=== PATIENT | female | born 1960 | race African-American/Black ===

== ENCOUNTER 2016-11-08 16:21 | Inpatient (IN) | payer MEDICARE, MEDICAID ==
[~2016-11-08] VITALS: Ht 165.1 cm; Wt 103.9 kg
[~2016-11-08 16:21] MED LIST: ALBU8I INH; GABA600T PO; GLUCTES27 XX; LISI10TA PO; LYRI50CA2 PO; PROT40TA PO; ZITHTAB PO
[2016-11-08 16:23] VITALS: BP 114/73; PULSE 118; RESP 28; TEMP 98.4; O2SAT 97
[2016-11-08 16:26] VITALS: PULSE 110
--- NOTE | 2016-11-08 16:44 | PD ---
HPI Chief Complaint: Injury Time Seen by Provider: 16:40 Travel History International Travel<30 days: No Contact w/Intl Traveler<30days: No Traveled to known affect area: No History of Present Illness HPI 56-year-old female presents to the emergency Department with complaint of right knee pain after tripping over a curb and falling on cement on her right knee. Denies hitting her head or loss of consciousness. Denies neck pain or back pain. Says it feels like her kneecap is cracked in two. Patient is tearful and reports excessive pain. Denies paresthesias, loss of sensation to the affected extremity. Reports decreased range of motion at the knee. Denies anticoagulants. Has no other medical complaints. No known allergies. History of lupus. No other modifying factors or associated signs and symptoms. PFSH Past Medical History Diabetes: Yes Menopausal: Yes Tubal Ligation: Yes Past Surgical History Section: Yes (X2) Social History Alcohol Use: No Tobacco Use: Yes (2-3 CIG PER DAY) Substance Use: No Allergies-Medications (Allergen,Severity, Reaction): Coded Allergies: No Known Allergies (Verified , 11/08/16) Reported Meds & Prescriptions Reported Meds & Active Scripts Active Lisinopril/Hctz 10 mg/12.5 mg 10 mg/12.5 mg Tab 1 Tab PO DAILY Contour Next Blood Glucose Test Strip #25 (Blood Glucose Test Strips) Strp 1 Strip XX DIRECTED Zithromax Z-Nick (Azithromycin) 1 Tab Tab 500 Mg PO DAILY Lyrica (Pregabalin) 50 Mg Cap 50 Mg PO TID Protonix (Pantoprazole Sodium) 40 Mg Tab 40 Mg PO DAILY Gabapentin 600 Mg Tab 600 Mg PO TID Ventolin Hfa (Albuterol Sulfate) 8 Gm Aero 1 Puff INH Q4 * SHAKE WELL BEFORE USE * Lyrica (Pregabalin) 50 Mg Cap 50 Mg PO TID Review of Systems Except as stated in HPI: all other systems reviewed are Neg Physical Exam Narrative GENERAL: Well-nourished, well-developed female patient, in no acute distress; afebrile, nontoxic-appearing; tearful and appears painful SKIN: Warm and dry. HEAD: Atraumatic. Normocephalic. EYES: Pupils equal and round. No scleral icterus. No injection or drainage. ENT: Mucosa pink and moist. Airway patent. NECK: Trachea midline. CARDIOVASCULAR: Regular rate. RESPIRATORY: No accessory muscle use. GASTROINTESTINAL: Rounded. MUSCULOSKELETAL: Right knee nonedematous, nonerythematous, and without ecchymosis; unable to assess range of motion; tenderness to the patellar aspect and the patella with deformity on palpation; patella appears deformed. Right Lower extremity is supple and non-tense with 2+ pedal pulse and sensory intact and without erythema or edema. Ambulatory in room with a limp to the [-] lower extremity. NEUROLOGICAL: Awake and alert. Oriented 3. No obvious cranial nerve deficits. Motor grossly within normal limits. Normal speech. PSYCHIATRIC: Appropriate mood and affect; insight and judgment normal. Data Data Last Documented VS Vital Signs Date Time Temp Pulse Resp B/P Pulse Ox O2 Delivery O2 Flow Rate FiO2 11/08/16 16:58 17 11/08/16 16:47 99 Room Air 11/08/16 16:26 110 11/08/16 16:23 98.4 114/73 Orders Knee, Complete (4vws) (11/08/16 16:32) Morphine Inj (Morphine Inj) (11/08/16 16:45) Canvas Knee Splint (Cks) (11/08/16 ) Ice Cuff (11/08/16 ) Npo After Midnight W/ Po Meds (11/08/16 Dinner) Diet Regular Basic (11/08/16 Dinner) Basic Metabolic Panel (Bmp) (11/08/16 18:12) Complete Blood Count With Diff (11/08/16 18:12) Prothrombin Time / Inr (Pt) (11/08/16 18:12) Act Partial Throm Time (Ptt) (11/08/16 18:12) Iv Access Insert/Monitor (11/08/16 18:12) Sodium Chloride 0.9% Flush (Ns Flush) (11/08/16 18:15) Electrocardiogram (11/08/16 18:12) Chest, Single Ap (11/08/16 18:12) Consult Orthopedic (11/08/16 18:17) (Hub Use Only)Inp Phy Cons/Ref (11/08/16 ) MDM Medical Decision Making Medical Screen Exam Complete: Yes Emergency Medical Condition: Yes Medical Record Reviewed: Yes Differential Diagnosis Patellar fracture, knee contusion, knee injury Narrative Course 56-year-old female with right knee injury after mechanical trip and fall today. The patella of the right knee appears and feels deformed. Suspecting patellar fracture. Morphine ordered by JOSE. Right knee x-ray ordered. 1804: Right knee x-ray concludes comminuted, displaced patellar fracture. Call to orthopedics place. 1809: I spoke with DIA Greco and the patient will be admitted for surgery in the morning. Call out to medical for admission placed. Preop orders entered. 1839: I discussed the patient with Dr. Hicks and the patient will be admitted to his service. Physician Communication Physician Communication IDA Greco of Dr. Nguyen Hicks Diagnosis Primary Impression: Patellar fracture Qualified Code: S82.041A - Closed displaced comminuted fracture of right patella, initial encounter Admitting Information Admitting Physician Requests: Admit Angela Santana Nov 08, 2016 16:44
[2016-11-08] MEDS ORDERED: MORPHINE SULFATE 4 MG/ML INJ IM ONE (16:45)
--- NOTE | 2016-11-08 18:01 | RADRPT ---
EXAM DATE/TIME: 11/08/2016 16:43 [facility] COMPARISON: No previous studies available for comparison. INDICATIONS : Right knee pain MEDICAL HISTORY : None. SURGICAL HISTORY : None. ENCOUNTER: Initial ACUITY: 1 day PAIN SCORE: 9/10 LOCATION: Right knee FINDINGS: There is a comminuted mid patella fracture with 1.5 cm distraction anteriorly and 5 mm posterior disp lacement of proximal fragment. Small joint effusion. No other fractures are seen. CONCLUSION: 1. Comminuted, displaced patellar fracture. Wicho Chambers MD on November 08, 2016 at 17:58 Board Certified Radiologist. This report was verified electronically.
[2016-11-08] MEDS ORDERED: SODIUM CHLORIDE 0.9% FLUSH 10 ML FLUSH IV FLUSH PRN ×2 (18:15→19:00)
--- NOTE | 2016-11-08 18:32 | RADRPT ---
EXAM DATE/TIME: 11/08/2016 18:11 [facility] COMPARISON: CHEST SINGLE AP, October 26, 2013, 16:47. INDICATIONS : Evaluate for pneumonia, pneumothorax, or any communicable disease. Pre-op right knee. MEDICAL HISTORY : None. SURGICAL HISTORY : None. ENCOUNTER: Initial ACUITY: 1 day PAIN SCORE: 0/10 LOCATION: Bilateral chest FINDINGS: A single view of the chest demonstrates the lungs to be symmetrically aerated without evidence of mas s, infiltrate or effusion. The cardiomediastinal contours are unremarkable. Osseous structures are intact. CONCLUSION: 1. No acute findings. No focal lung consolidation or effusion. Wicho Chambers MD on November 08, 2016 at 18:28 Board Certified Radiologist. This report was verified electronically.
[2016-11-08 18:42] VITALS: BP 120/77; PULSE 98; RESP 17; TEMP 97.8; O2SAT 99
[2016-11-08 18:49] LABS: AUTOMATED NEUTROPHIL # 8.9 TH/MM3 (1.8-7.7); BASOPHIL % 0.4 % (0.0-2.0); EOSINOPHIL # 0.1 TH/MM3 (0-0.4); EOSINOPHIL % 0.6 % (0.0-4.0); HEMATOCRIT 41.9 % (35.0-46.0); HEMO FLAGS DIFF FINAL; LYMPHOCYTE # 1.9 TH/MM3 (1.0-4.8); MEAN CELL VOLUME 93.3 FL (80.0-100.0); MEAN CORPUSCULAR HEMOGLOBIN 30.8 PG (27.0-34.0); MONO % 6.9 % (0.0-8.0); NEUT % 76.1 % (16.0-70.0); PLATELET COUNT 245 TH/MM3 (150-450); RED CELL DISTRIBUTION WIDTH 14.3 % (11.6-17.2); WHITE BLOOD COUNT 11.7 TH/MM3 (4.0-11.0)
--- NOTE | 2016-11-08 18:56 | HHI.HP ---
HPI Service [facility] Hospitalists Primary Care Physician Claude Paniagua MD Admission Diagnosis right patellar fracture Diagnoses: Chief Complaint: Right knee pain Travel History International Travel<30 Days: No Contact w/Intl Traveler <30 Da: No Traveled to Known Affected Are: No History of Present Illness This is a 56-year-old female with past medical history significant for hypertension, lupus, diet-controlled diabetes, depression presented to [facility] after she fell after healing occur over her knees. She felt immediate /10 pain was nonradiating in the right knee and states was able to observe the right knee going inwards. The patient states that movement aggravated the pain and this was unrelieved after she was given IV morphine emergency department. The patient denies hitting her head or losing consciousness, denies dizziness, chest pain, short of breath, dysuria, abdominal pain, nausea, vomiting, diarrhea. She states that she was going to eat when she fell. Review of Systems As per history of present illness, other systems reviewed and negative. Past Family Social History Past Medical History Hypertension, lupus, depression, diet-controlled diabetes. Past Surgical History 2 Right hand incision and debridement. Esophageal dilatation for esophageal strictures. Allergies: Coded Allergies: No Known Allergies (Verified , 11/08/16) Active Ordered Medications Current Medications Medications (Trade) Dose Ordered Sig/Manuel Route Start Time Stop Time Status Last Admin (NS Flush) 2 ml UNSCH PRN IV FLUSH 11/08/16 18:15 Family History Patient has extensive family history for hypertension which is present in her siblings. Patient's mother from bone cancer. Patient father from brain aneurysm. Social History Patient smokes 4 cigarettes per day. Patient drinks wine every night. Denies using illicit drugs. Physical Exam Vital Signs Vital Signs Date Time Temp Pulse Resp B/P Pulse Ox O2 Delivery O2 Flow Rate FiO2 11/08/16 18:42 97.8 98 17 120/77 99 Room Air 11/08/16 16:58 17 11/08/16 16:47 17 99 Room Air 11/08/16 16:26 110 11/08/16 16:23 98.4 118 28 114/73 97 Room Air Physical Exam GENERAL: This is a well-nourished, well-developed patient, in no apparent distress. SKIN: No rashes, ecchymoses or lesions. Cool and dry. HEAD: Atraumatic. Normocephalic. No temporal or scalp tenderness. EYES: Pupils equal round and reactive. Extraocular motions intact. No scleral icterus. No injection or drainage. ENT: Nose without bleeding, purulent drainage or septal hematoma. Throat without erythema, tonsillar hypertrophy or exudate. Uvula midline. Airway patent. NECK: Trachea midline. No JVD or lymphadenopathy. Supple, nontender, no meningeal signs. CARDIOVASCULAR: Regular rate and rhythm without murmurs, gallops, or rubs. RESPIRATORY: Clear to auscultation. Breath sounds equal bilaterally. No wheezes , rales, or rhonchi. GASTROINTESTINAL: Abdomen soft, non-tender, nondistended. No hepato-splenomegaly , or palpable masses. No guarding. MUSCULOSKELETAL: Right knee is in immobilizer. Right knee swollen and tender to palpation. There is mild elevation of the left knee but no tenderness to palpation of patella. NEUROLOGICAL: Awake and alert. Cranial nerves II through XII intact. Motor and sensory grossly within normal limits. Five out of 5 muscle strength in all muscle groups. Normal speech. Laboratory Laboratory Tests Test 11/08/16 18:15 White Blood Count 11.7 Red Blood Count 4.50 Hemoglobin 13.9 Hematocrit 41.9 Mean Corpuscular Volume 93.3 Mean Corpuscular Hemoglobin 30.8 Mean Corpuscular Hemoglobin 33.0 Concent Red Cell Distribution Width 14.3 Platelet Count 245 Mean Platelet Volume 9.0 Neutrophils (%) (Auto) 76.1 Lymphocytes (%) (Auto) 16.0 Monocytes (%) (Auto) 6.9 Eosinophils (%) (Auto) 0.6 Basophils (%) (Auto) 0.4 Neutrophils # (Auto) 8.9 Lymphocytes # (Auto) 1.9 Monocytes # (Auto) 0.8 Eosinophils # (Auto) 0.1 Basophils # (Auto) 0.0 CBC Comment DIFF FINAL Differential Comment Result Diagram: 11/08/161814 Imaging Last Impressions Chest X-Ray 11/08/161811 Signed Impressions: Service Date/Time: Tuesday, November 08, 2016 18:11 - CONCLUSION: 1. No acute findings. No focal lung consolidation or effusion. Wicho Chambers MD Knee X-Ray 11/08/16 1632 Signed Impressions: Service Date/Time: Tuesday, November 08, 2016 16:43 - CONCLUSION: 1. Comminuted , displaced patellar fracture. Wicho Chambers MD Reviewed personally by me Assessment and Plan Problem List: (1) Patellar fracture ICD Code: S82.009A Status: Acute Plan: The patient to the medical/surgical floor With leg pain control with IV morphine Orthopedic surgery has been consulted by ED physician - patient will go for or in a.m. Keep nothing by mouth at midnight Chest x-ray viewed by me is clear without acute disease EKG reviewed by me shows sinus rhythm and diffuse T-wave inversion. I will consult cardiology to clear patient for surgical procedure given abnormal EKG. (2) Hypertension ICD Code: I10 Status: Chronic Plan: Continue home antihypertensive medications once medication reconciliation done. (3) Depression ICD Code: F32.9 Status: Acute Plan: C2 stable. Continue Lexapro. (4) Lupus ICD Code: M32.9 Status: Acute Plan: Seems to be stable. Continue Plaquenil. Assessment and Plan DVT prophylaxis: SCDs will not place on heparin subcutaneous since patient is going for an invasive procedure and the family history of brain aneurysm. Code Status Full code Discussed Condition With Patient's, ED physician, RN. Physician Certification 2 Midnight Certification Type: Admission for Inpatient Services Order for Inpatient Services The services are ordered in accordance with Medicare regulations or non- Medicare payer requirements, as applicable. In the case of services not specified as inpatient-only, they are appropriately provided as inpatient services in accordance with the 2-midnight benchmark. Estimated LOS (days): 3 days is the estimated time the patient will need to remain in the hospital, assuming treatment plan goals are met and no additional complications. Post-Hospital Plan: Not yet determined Problem Qualifiers (1) Patellar fracture: Qualified Code: S82.041A - Closed displaced comminuted fracture of right patella, initial encounter (2) Hypertension: Qualified Code: I10 - Essential hypertension (3) Depression: Qualified Code: F32.9 - Depression, unspecified depression type Nicola Hyman MD Nov 08, 2016 18:56
[2016-11-08] MEDS ORDERED: BISACODYL 10 MG SUPP RECTAL PRN (19:00)
[2016-11-08] MEDS ORDERED: ACETAMINOPHEN 325 MG TAB PO PRN (19:00)
[2016-11-08] MEDS ORDERED: ONDANSETRON HCL 4 MG/2 ML VIAL IVP PRN (19:00)
[2016-11-08] MEDS ORDERED: MAGNESIUM HYDROXIDE SUSP 30 ML CUP PO PRN (19:00)
[2016-11-08] MEDS ORDERED: LACTULOSE SYRUP 20 GM/30 ML CUP PO PRN (19:00)
[2016-11-08] MEDS ORDERED: SENNOSIDES 8.6 MG TAB PO PRN (19:00)
[2016-11-08 19:02] LABS: APTT (PATIENT) 26.1 SEC (24.3-30.1); INTERNATIONAL NORMALIZED RATIO 1.1 RATIO; PROTHROMBIN TIME - PATIENT 12.7 SEC (9.8-11.6)
[2016-11-08 19:11] LABS: BICARBONATE 24.1 MEQ/L (21.0-32.0); POTASSIUM 3.8 MEQ/L (3.5-5.1)
[2016-11-08] MEDS ORDERED: PLAQ200T PO (19:29)
[2016-11-08] MEDS ORDERED: ENAL5TAB PO (19:29)
[2016-11-08] MEDS ORDERED: HYDR-3535 PO (19:29)
[2016-11-08] MEDS ORDERED: BACL10TA PO (19:29)
[2016-11-08] MEDS ORDERED: VENTAER INH (19:29)
[2016-11-08] MEDS ORDERED: LISI-515 PO (19:29)
[2016-11-08] MEDS ORDERED: HYDR25TA5 PO (19:29)
[2016-11-08] MEDS ORDERED: LEXA10TA PO (19:29)
[2016-11-08] MEDS ORDERED: MORPHINE SULFATE 4 MG/ML INJ IV PUSH PRN (19:30)
[2016-11-08] MEDS ORDERED: cloNIDine HCL 0.1 MG TAB PO PRN (19:30)
[2016-11-08] MEDS ORDERED: TIZA4CAP3 PO (19:57)
[2016-11-08] MEDS ORDERED: AMLO5TAB2 PO (19:57)
[2016-11-08] MEDS: MORPHINE SULFATE 4 MG/ML INJ IV PUSH PRN ×2 (20:30→23:31)
[2016-11-08] MEDS: DOCUSATE SODIUM 50 MG/SENNA 8.6 MG TAB PO SCH (20:30)
[2016-11-08 20:45] VITALS: BP 136/93; PULSE 105; RESP 19; TEMP 96.7; O2SAT 94
[2016-11-08] MEDS ORDERED: HEPARIN SODIUM - SQ 10,000 UNITS/ML VIAL SQ SCH (21:00)
[2016-11-08] MEDS ORDERED: SODIUM CHLORIDE 0.9% FLUSH 10 ML FLUSH IV FLUSH SCH (21:00)
[2016-11-08 23:50] VITALS: BP 104/81; PULSE 98; RESP 18; TEMP 97.9; O2SAT 98
[2016-11-09] MEDS ORDERED: POVIDONE IODINE 5% (ANTISEPSIS KIT) 4 APPLICATIONS EACH NARE PRN (02:30)
[2016-11-09] MEDS ORDERED: CHLORHEXIDINE GLUCONATE 2 % 1 PACK (2 CLOTHS) TOPICAL PRN (02:30)
[2016-11-09] MEDS ORDERED: INSULIN HUMAN REGULAR 1,000 UNITS/10 ML VIAL SQ PRN (02:30)
[2016-11-09] MEDS ORDERED: LACTATED RINGER'S 1000 ML IV PRN (02:30)
[2016-11-09] MEDS ORDERED: SODIUM CHLORID 0.9% 500 ML IV PRN (02:30)
[2016-11-09] MEDS ORDERED: METOPROLOL TARTRATE 25 MG TAB PO PRN (02:30)
[2016-11-09] MEDS: MORPHINE SULFATE 4 MG/ML INJ IV PUSH PRN ×6 (03:31→23:05)
[2016-11-09 04:13] VITALS: BP 107/86; PULSE 94; RESP 18; TEMP 98.2; O2SAT 98
[2016-11-09 06:59] LABS: AUTOMATED NEUTROPHIL # 6.5 TH/MM3 (1.8-7.7); BASOPHIL % 0.4 % (0.0-2.0); EOSINOPHIL # 0.1 TH/MM3 (0-0.4); HEMATOCRIT 37.2 % (35.0-46.0); HEMO FLAGS DIFF FINAL; LYMPH % 30.3 % (9.0-44.0); LYMPHOCYTE # 3.3 TH/MM3 (1.0-4.8); MEAN CELL VOLUME 92.9 FL (80.0-100.0); MEAN CORPUSCULAR HEMOGLOBIN 31.8 PG (27.0-34.0); MEAN CORPUSCULAR HGB CONC 34.2 % (32.0-36.0); MONO % 8.8 % (0.0-8.0); NEUT % 59.5 % (16.0-70.0); PLATELET COUNT 246 TH/MM3 (150-450); RED BLOOD COUNT 4.01 MIL/MM3 (4.00-5.30); RED CELL DISTRIBUTION WIDTH 14.3 % (11.6-17.2)
--- NOTE | 2016-11-09 07:20 | PD.ORT.PN ---
Subjective Subjective Remarks Fall at restaurant. Right knee pain with inability to straight leg Objective Vitals Vital Signs Date Time Temp Pulse Resp B/P Pulse Ox O2 Delivery O2 Flow Rate FiO2 11/09/16 04:13 98.2 94 18 107/86 98 11/08/16 23:50 97.9 98 18 104/81 98 11/08/16 20:45 96.7 105 19 136/93 94 11/08/16 19:34 Room Air 11/08/16 18:42 97.8 98 17 120/77 99 Room Air 11/08/16 16:58 17 11/08/16 16:47 17 99 Room Air 11/08/16 16:26 110 11/08/16 16:23 98.4 118 28 114/73 97 Room Air I/O 11/08/16 11/08/16 11/08/16 11/09/16 11/09/16 11/09/16 07:00 15:00 23:00 07:00 15:00 23:00 Intake Total 360 ml 0 ml Balance 360 ml 0 ml Intake Oral 360 ml 0 ml # Voids 1 2 # Bowel Movements 0 0 Result Diagram: 11/09/16 0559 11/08/165 Other Results Laboratory Tests Test 11/08/16 18:15 Prothrombin Time 12.7 SEC (9.8-11.6) Prothromb Time International 1.1 RATIO Ratio Imaging Last 24 hours Impressions Chest X-Ray 11/08/16 1812 Signed Impressions: Service Date/Time: Tuesday, November 08, 2016 18:11 - CONCLUSION: 1. No acute findings. No focal lung consolidation or effusion. Wicho Chambers MD Knee X-Ray 11/08/16 1632 Signed Impressions: Service Date/Time: Tuesday, November 08, 2016 16:43 - CONCLUSION: 1. Comminuted , displaced patellar fracture. Wicho Chambers MD Objective Remarks Bilateral upper extremity is: Full range of motion neurovascularly intact Left lower extremity: Full range of motion neurovascularly intact Right lower extremity: No pain with hip range of motion or ankle motion. Knee immobilizer in place with moderate swelling of knee. No lacerations or abrasions over patella. Knee immobilizer in place with ice cuff. Intact sensation distally with good capillary refills. Strong dorsal flexion plantar flexion of foot Assessment & Plan Assessment and Plan Right patella fracture Maintain knee immobilizer Nothing by mouth Surgery this morning with Dr. Cedillo for surgical fixation of right patella Weightbearing and range of motion status to be added after surgery Sign consents Mac Sebastian Jr. Nov 09, 2016 07:20
[2016-11-09 07:22] LABS: ANION GAP 10 MEQ/L (5-15); AST (GOT) 17 U/L (15-37); BICARBONATE 25.4 MEQ/L (21.0-32.0); BLOOD UREA NITROGEN 10 MG/DL (7-18); CHLORIDE 101 MEQ/L (98-107); GLOMERULAR FILTRATION RATE 86 ML/MIN (>89); POTASSIUM 3.6 MEQ/L (3.5-5.1); SODIUM (NA) 136 MEQ/L (136-145)
[2016-11-09] MEDS ORDERED: XARE10TA PO (07:22)
[2016-11-09] MEDS ORDERED: HYDR-3288 PO (07:22)
[2016-11-09 07:25] LABS: ALKALINE PHOSPHATASE 63 U/L (45-117); ALT (GPT) 18 U/L (10-53); TOTAL BILIRUBIN ADULT 0.3 MG/DL (0.2-1.0)
[2016-11-09] MEDS ORDERED: WALKER WHEELS/F1 MIS (07:25)
[2016-11-09] MEDS ORDERED: CALCTAB19 PO (07:28)
[2016-11-09] MEDS ORDERED: ERGO1CAP30 PO (07:28)
[2016-11-09 07:50] VITALS: BP 117/91; PULSE 104; RESP 16; TEMP 97.7; O2SAT 95
[2016-11-09] MEDS ORDERED: BUPIVACAINE/EPINEPHRINE 0.25% PF 10 ML VIAL ONE (08:52)
[2016-11-09] MEDS ORDERED: VANCOMYCIN HCL 1000 MG VIAL ONE (08:52)
[2016-11-09] MEDS ORDERED: ceFAZolin INJ 1,000 MG VIAL ONE (08:52)
[2016-11-09] MEDS ORDERED: GENTAMICIN SULFATE 80 MG/2 ML VIAL ONE (08:53)
[2016-11-09] MEDS: DOCUSATE SODIUM 50 MG/SENNA 8.6 MG TAB PO SCH ×2 (09:00→20:32)
--- NOTE | 2016-11-09 09:24 | MB ---
cc: ZARIA WANG MD, TODD DATE OF CONSULTATION: 11/09/2016 REASON FOR CONSULTATION: Right patella fracture. CONSULTING PHYSICIAN Dr. Hicks ARIEL Hoffman is a 56-year-old female who was on her way to a restaurant. She lost her balance and fell. She landed on her right knee. She had immediate right knee pain. She presented to the emergency room where x-rays revealed a displaced right patella fracture. She is currently awake on the orthopedic floor. Pain is worse with movement and is improved with rest. She denies dizziness, syncope, loss of consciousness. She has a history of hypertension, diet controlled diabetes and depression. PAST MEDICAL HISTORY ILLNESSES Hypertension, lupus, depression, diet controlled diabetes. SURGERIES , right hand surgery, esophageal dilation. ALLERGIES NO KNOWN DRUG ALLERGIES. MEDICATIONS Please see EMR for complete list of inpatient medications. This was reviewed. FAMILY HISTORY: Family history is positive for hypertension throughout her family. Cerebral aneurysm in her father and cancer in the mother. SOCIAL HISTORY The patient smokes a few cigarettes a day. She drinks wine most nights. She denies drug use. REVIEW OF SYSTEMS The patient denies headache, visual changes, neck pain, chest pain, shortness of breath, abdominal pain, nausea, vomiting or recent weight loss. She complains of right knee pain. PHYSICAL EXAMINATION The patient is a well-developed, well-nourished 56-year-old female who is awake and alert. She is alert and oriented x3. She is in no acute distress. Vital signs: Temperature 98.2, pulse 94, respirations 18, blood pressure 107/86, O2 sat 98% on room air. Head: The patient is normocephalic. Pupils are equal. Neck: Soft, nontender. Trachea is midline. Abdomen: Soft, nontender, nondistended. Extremities: Examination of bilateral upper extremities reveals no pain with shoulder, elbow or wrist motion. She has intact sensation in all fingers. She has good capillary refill in all fingers. Drum Attendant strength is +5, radial pulses are palpable. Examination of left leg reveals no pain with hip, knee or ankle motion. Skin is intact. Dorsalis pedis pulses palpable. Sensation is intact. Examination of right leg reveals no tenderness on her hip or ankle. She is tender to palpation over the patella. She has mild swelling present. She has pain with any knee motion. Calf and thigh compartments are soft. Sensation is intact in right foot. X-RAYS X-rays of right knee were reviewed. X-rays reveal a displaced right patella fracture. IMPRESSION 1. Displaced right patella fracture. 2. Diet controlled diabetes 3. Hypertension. PLAN Treatment options were discussed with the patient. At this point I would recommend surgical treatment for open reduction internal fixation of right patella. Risks of surgery include bleeding, infection, injury to arteries, nerves, blood vessels, nonunion, malunion, painful hardware as well as medical complications including blood clot, stroke, heart attack and . I explained that she will have to be very cautious and gentle with her knee or she could displace the fracture after surgery. A mid-level provider in my office, nurse practitioner or PA, may see this patient on a follow-up basis and continue to implement the objective of this plan including: Starting or adjusting medications, injections of muscle, tendon, bursa or joints, cast application, orthotic or brace application, physical therapy, further radiographic studies including x-ray, MRI, CT, ultrasounds or bone scan, vascular studies, neurologic studies, or other specialist consultations, and proceeding with surgical management as appropriate. MD ALVIN Bolanos/ANN /7:24 AM /9:09 AM
[2016-11-09] MEDS ORDERED: Post-op Orders (for Pharmacy) MISC XX ONE (09:30)
[2016-11-09] MEDS ORDERED: ACETAMINOPHEN/HYDROcodone 325 MG/7.5 MG TAB PO PRN (09:30)
[2016-11-09] MEDS ORDERED: SODIUM CHLORIDE 0.9% FLUSH 5 ML FLUSH IVF PRN (09:30)
[2016-11-09] MEDS ORDERED: MORPHINE SULFATE 4 MG/ML INJ IV PUSH PRN (09:30)
[2016-11-09] MEDS ORDERED: diphenhydrAMINE HCL 25 MG CAP PO PRN (09:30)
--- NOTE | 2016-11-09 09:38 | EKG ---
Date Performed: 11/08/2016 Time Performed: 18:40:43 PTAGE: 56 years EKG: Sinus rhythm ST DEVIATION AND MODERATE T-WAVE ABNORMALITY, CONSIDER ANTEROLATERAL ISCHEMIA ABNORMAL ECG PREVIOUS TRACING : 10/26/2013 22.33 DOCTOR: Oniel Euceda Interpretating Date/Time 11/09/2016 09:32:53
[2016-11-09] MEDS ORDERED: LACTATED RINGER'S 1000 ML INJ 1,000 ML IV SCH (10:00)
[2016-11-09 11:17] LABS: CREATINE KINASE 163 U/L (26-192)
--- NOTE | 2016-11-09 11:26 | MB ---
cc: JERSON GOOD M.D., ROLANDO MD GOLDSMITH, ALAN S. M.D. KOHEN, MICHAEL D. MD DATE OF CONSULTATION: 11/09/2016. HISTORY OF PRESENT ILLNESS: I have reviewed prior and present records and spoken to the patient. The patient is a 56-year-old black woman I am seeing for preoperative clearance for knee surgery. The patient has a longstanding abnormal EKG dating back at least three years. These include nonspecific S-T-T wave changes which are well documented in the computer. SPECT nuclear in 2013 was normal. The patient has chronic pain from joint issues and lupus. She is moderately active; however, able to do chores, walk and climb stairs and has absolutely no cardiac symptoms. She has very mild dyspnea which has slowly increased over the years, although her weight has increased significantly because she had previously been taking steroids. PAST MEDICAL HISTORY: 1. Hypertension. 2. Diet-controlled diabetes. 3. Systemic lupus. 4. Depression. 5. Tubal ligation. 6. section. 7. Tobacco abuse disorder. 8. Left shoulder manipulation. 9. Right hand incision and drainage. 10. Esophageal dilatation for strictures. ALLERGIES: None. FAMILY HISTORY: The patient has no premature family history of coronary disease. SOCIAL HISTORY: She is and smokes three to four cigarettes per day and occasionally drinks. REVIEW OF SYSTEMS: Gone through and remarkable for slow weight gain over the years, joint pain. The patient fell and suffered a patella fracture. There were no cardiac symptoms associated with this. EKGS: EKG shows sinus rhythm with nonspecific S-T-T wave changes, which she has had before. MEDICATIONS PRIOR TO ADMISSION: 1. Amlodipine. 2. Baclofen. 3. Hydrochlorothiazide. 4. Hydrocodone. 5. Plaquenil. 6. Lisinopril. 7. Xarelto. IMAGING STUDIES: Chest x-ray showed no active disease. LABORATORY DATA: CBC normal. PT/PTT normal. Potassium 3.8 and 3.6. Creatinine 0.83. Liver functions normal. Sodium 136. PHYSICAL EXAMINATION: GENERAL: On exam, she is an overweight woman in no apparent distress and is alert and oriented times three. She is in the recovery unit as she was taken to surgery before I could see her this morning and they felt uncomfortable doing surgery of her because of her EKG abnormalities. VITAL SIGNS: Afebrile. The vital signs are stable. SKIN: There are no xanthelasma and oropharyngeal mucosa normal. CHEST: Clear without deformities. CARDIOVASCULAR: JVD normal. S1, S2. No murmurs or gallops. ABDOMEN: Benign. EXTREMITIES: Show no cyanosis, clubbing or edema. PULSES: Carotids without bruits. Radials 1 to 2+ on the left and she has an arterial line on the right. Femorals deep 1+ without bruits. Pedals 1 to 2+. NEUROLOGIC: She was not ambulated. PROBLEM LIST: 1. Knee fracture. 2. Hypertension. 3. Diet-controlled diabetes. 4. Systemic lupus. 5. Obesity. RECOMMENDATIONS: 1. The knee surgery is a moderate risk procedure. The patient has no change in exercise tolerance, no cardiac symptoms, and has baseline EKG abnormalities. At this point in time, I would clear her for surgery at a moderate cardiovascular risk, which she understands 2. Low cholesterol / salt / diabetic diet with weight loss. 3. I have asked her to speak with her primary care provider about a baby aspirin per day and statin therapy given her diet-controlled diabetes. 4. She will need DVT prophylaxis postoperatively. I will not follow but be available if needed. All questions were answered. MD HECTOR Denny/DUDLEY /10:31 AM /11:20 AM
[2016-11-09 12:00] VITALS: BP 121/85; PULSE 95; RESP 16; TEMP 96; O2SAT 96
[2016-11-09] MEDS ORDERED: CALCIUM/VITAMIN D 250 MG/125 U TAB PO SCH (13:00)
--- NOTE | 2016-11-09 13:50 | OTSOAPIP ---
PATIENT IS SCHEDULED FOR SURGERY. WILL ATTEMPT TOMORROW. Therapist: Corinne Abreu OTR/L Signature on file
[2016-11-09 16:00] VITALS: BP 133/76; PULSE 105; RESP 18; TEMP 96.7; O2SAT 96
[2016-11-09] MEDS ORDERED: ceFAZolin 2 GM PREMIX 50 ML IV SCH (16:00)
--- NOTE | 2016-11-09 18:23 | HHI.PR ---
Subjective Remarks Patient c/o severe pain in right knee denies cp/sob denies nausea, vomiting stable vital signs Objective Vitals Vital Signs Date Time Temp Pulse Resp B/P Pulse Ox O2 Delivery O2 Flow Rate FiO2 11/09/16 11:00 98.5 92 16 135/66 96 Room Air 11/09/16 10:30 94 16 134/70 96 Room Air 11/09/16 10:15 95 15 133/82 95 Room Air 11/09/16 10:00 97.8 93 14 122/78 96 Room Air 11/09/16 07:50 97.7 104 16 117/91 95 11/09/16 04:13 98.2 94 18 107/86 98 11/08/16 23:50 97.9 98 18 104/81 98 11/08/16 20:45 96.7 105 19 136/93 94 11/08/16 19:34 Room Air 11/08/16 18:42 97.8 98 17 120/77 99 Room Air I/O 11/08/16 11/08/16 11/08/16 11/09/16 11/09/16 11/09/16 07:00 15:00 23:00 07:00 15:00 23:00 Intake Total 360 ml 0 ml 150 ml Balance 360 ml 0 ml 150 ml Intake Oral 360 ml 0 ml IV Total 150 ml # Voids 1 2 0 # Bowel Movements 0 0 Result Diagram: 11/09/16 0559 11/09/16 0559 Imaging Last Impressions Chest X-Ray 11/08/16 1812 Signed Impressions: Service Date/Time: Tuesday, November 08, 2016 18:11 - CONCLUSION: 1. No acute findings. No focal lung consolidation or effusion. Wicho Chambers MD Knee X-Ray 11/08/16 1632 Signed Impressions: Service Date/Time: Tuesday, November 08, 2016 16:43 - CONCLUSION: 1. Comminuted , displaced patellar fracture. Wicho Chambers MD Objective Remarks GENERAL: This is a well-nourished, well-developed patient, in moderate distress due to pain. SKIN: No rashes, ecchymoses or lesions. Cool and dry. HEAD: Atraumatic. Normocephalic. No temporal or scalp tenderness. EYES: Pupils equal round and reactive. Extraocular motions intact. No scleral icterus. No injection or drainage. ENT: Nose without bleeding, purulent drainage or septal hematoma. Throat without erythema, tonsillar hypertrophy or exudate. Uvula midline. Airway patent. NECK: Trachea midline. No JVD or lymphadenopathy. Supple, nontender, no meningeal signs. CARDIOVASCULAR: Regular rate and rhythm without murmurs, gallops, or rubs. RESPIRATORY: Clear to auscultation. Breath sounds equal bilaterally. No wheezes , rales, or rhonchi. GASTROINTESTINAL: Abdomen soft, non-tender, nondistended. No hepato-splenomegaly , or palpable masses. No guarding. MUSCULOSKELETAL: Right knee is in immobilizer. Right knee swollen and tender to palpation. There is mild elevation of the left knee but no tenderness to palpation of patella. NEUROLOGICAL: Awake and alert. Cranial nerves II through XII intact. Motor and sensory grossly within normal limits. Five out of 5 muscle strength in all muscle groups. Normal speech. Medications and IVs Current Medications Medications (Trade) Dose Ordered Sig/Manuel Route Start Time Stop Time Status Last Admin (Tylenol) 650 mg Q4H PRN PO 11/08/16 19:00 (Zofran Inj) 4 mg Q6H PRN IVP 11/08/16 19:00 (Sera-Colace) 1 tab BID PO 11/08/16 21:00 11/08/16 20:30 (Milk Of Magnesia Liq) 30 ml Q12H PRN PO 11/08/16 19:00 (Senokot) 17.2 mg Q12H PRN PO 11/08/16 19:00 (Dulcolax Supp) 10 mg DAILY PRN RECTAL 11/08/16 19:00 (Lactulose Liq) 30 ml DAILY PRN PO 11/08/16 19:00 (Morphine Inj) 2 mg Q3H PRN IV PUSH 11/08/16 19:30 (Morphine Inj) 4 mg Q3H PRN IV PUSH 11/08/16 19:30 11/09/16 16:34 Clonidine 0.1 mg 0.1 mg Q6H PRN PO 11/08/16 19:30 Lactated Ringer's 1,000 ml @ 30 mls/hr Q24H PRN IV 11/09/16 02:30 11/12/16 02:29 (NS 500 ml Inj) 500 ml @ 30 mls/hr [id number] PRN IV 11/09/16 02:30 11/12/16 02:29 (Lovenox Inj) 30 mg Q24H SQ 11/10/16 09:00 Urinary Catheter: No Vascular Central Line Catheter: No A/P Problem List: (1) Patellar fracture ICD Code: S82.009A Status: Acute Plan: The patient to the medical/surgical floor Continue pain control w IV morphine Orthopedic surgery has been consulted by ED physician -patient went down to OR today, however did not get surgery because cardiology clearance was not done previously. Keep nothing by mouth at midnight Chest x-ray viewed by me is clear without acute disease EKG reviewed by me shows sinus rhythm and diffuse T-wave inversion. Cardiology has been consulted and cleared the patient for a surgical procedure. (2) Hypertension ICD Code: I10 Status: Chronic Plan: Will resume home medications. The patient currently on amlodipine. Hold hydrochlorothiazide. (3) Depression ICD Code: F32.9 Status: Acute Plan: Seems stable. Continue Lexapro. (4) Lupus ICD Code: M32.9 Status: Acute Plan: Seems to be stable. Continue Plaquenil. (5) Diabetes ICD Code: E11.9 Status: Acute Plan: Diet controlled as per patient. We'll place on SSI with insulin NovoLog and monitor Accu-Cheks. Last hemoglobin A1c on 10/12/14 was 5.1. We'll check hemoglobin A1c. Advised patient to discuss with his primary above been started on aspirin and statin given her diabetes. Assessment and Plan GI prophylaxis: Patient on bowel regimen to prevent constipation. DVT prophylaxis: As per orthopedic surgery. The patient has been placed on Lovenox subcutaneous prior to surgery by orthopedic surgery. Discharge Planning Patient for or in a.m. Problem Qualifiers (1) Patellar fracture: Qualified Code: S82.041A - Closed displaced comminuted fracture of right patella, initial encounter (2) Hypertension: Qualified Code: I10 - Essential hypertension (3) Depression: Qualified Code: F32.9 - Depression, unspecified depression type (4) Diabetes: Qualified Code: E11.9 - Type 2 diabetes mellitus without complication, without long-term current use of insulin Nicola Hyman MD Nov 09, 2016 18:23
[2016-11-09] MEDS ORDERED: ALBUTEROL SULFATE 90 MCG/ACT HFA 18 GM INHALER INH PRN (18:45)
[2016-11-09] MEDS: HYDROXYCHLOROQUINE SULFATE 200 MG TAB PO SCH (20:32)
[2016-11-09 20:50] VITALS: BP 123/92; PULSE 105; RESP 18; TEMP 98.6; O2SAT 98
[2016-11-09] MEDS ORDERED: SODIUM CHLORIDE 0.9% FLUSH 5 ML FLUSH IVF SCH (21:00)
[2016-11-10] VITALS (9 sets, daily range): BP systolic 105–122; BP diastolic 67–94; PULSE 97–108; RESP 15–18; TEMP 95.7–97.4; O2SAT 93–100
[2016-11-10] MEDS: MORPHINE SULFATE 4 MG/ML INJ IV PUSH PRN ×2 (02:12→05:21)
--- NOTE | 2016-11-10 06:35 | PD.ORT.PN ---
Subjective Subjective Remarks Patient has a displaced right patellar fracture. She initially was scheduled for surgery yesterday. Surgery was postponed because of EKG changes. She is currently awake alert. Objective Vitals Vital Signs Date Time Temp Pulse Resp B/P Pulse Ox O2 Delivery O2 Flow Rate FiO2 11/10/16 04:50 96.7 106 18 116/84 95 11/10/16 00:35 97.4 102 18 105/71 97 11/09/16 20:50 98.6 105 18 123/92 98 11/09/16 20:00 98 Room Air 11/09/16 16:00 96.7 105 18 133/76 96 11/09/16 12:00 96.0 95 16 121/85 96 11/09/16 11:00 98.5 92 16 135/66 96 Room Air 11/09/16 10:30 94 16 134/70 96 Room Air 11/09/16 10:15 95 15 133/82 95 Room Air 11/09/16 10:00 97.8 93 14 122/78 96 Room Air 11/09/16 07:50 97.7 104 16 117/91 95 I/O 11/09/16 11/09/16 11/09/16 11/10/16 11/10/16 11/10/16 07:00 15:00 23:00 07:00 15:00 23:00 Intake Total 0 ml 870 ml 240 ml Balance 0 ml 870 ml 240 ml Intake Oral 0 ml 720 ml 240 ml IV Total 150 ml # Voids 2 3 1 # Bowel Movements 0 0 0 Result Diagram: 11/09/16 0559 11/09/16 0559 Imaging Last 24 hours Impressions Chest X-Ray 11/08/16 1812 Signed Impressions: Service Date/Time: Tuesday, November 08, 2016 18:11 - CONCLUSION: 1. No acute findings. No focal lung consolidation or effusion. Wicho Chambers MD Knee X-Ray 11/08/16 1632 Signed Impressions: Service Date/Time: Tuesday, November 08, 2016 16:43 - CONCLUSION: 1. Comminuted , displaced patellar fracture. Wicho Chambers MD Objective Remarks Bilateral upper extremity is: Full range of motion, NVI Left lower extremity: Full range of motion, NVI Right lower extremity: No pain with hip range of motion or ankle motion. Knee immobilizer in place with mild swelling of knee. No lacerations or abrasions over patella. Intact sensation distally with good capillary refills. Strong dorsal flexion plantar flexion of foot Assessment & Plan Assessment and Plan Right patella fracture Maintain knee immobilizer Nothing by mouth Surgery this morning Sign consents Javier Cedillo MD Nov 10, 2016 06:34
[2016-11-10] MEDS ORDERED: GENTAMICIN SULFATE 80 MG/2 ML VIAL ONE (07:02)
[2016-11-10] MEDS ORDERED: SODIUM CHLOR 0.9% 250 ML INJ 250 ML ONE (07:02)
[2016-11-10] MEDS ORDERED: VANCOMYCIN HCL 1000 MG VIAL ONE (07:02)
[2016-11-10] MEDS ORDERED: ceFAZolin 2 GM PREMIX 50 ML ONE (07:44)
[2016-11-10] MEDS ORDERED: SODIUM CHLORIDE 0.9% FLUSH 5 ML FLUSH IVF PRN (08:45)
[2016-11-10] MEDS ORDERED: diphenhydrAMINE HCL 25 MG CAP PO PRN (08:45)
[2016-11-10] MEDS ORDERED: MORPHINE SULFATE 4 MG/ML INJ IV PUSH PRN (08:45)
[2016-11-10] MEDS ORDERED: Post-op Orders (for Pharmacy) MISC XX ONE (08:45)
--- NOTE | 2016-11-10 08:48 | PD.OP ---
cc: Javier Machuca MD Operative Report Date of Surgery: Nov 10, 2016 Preoperative Diagnosis: Displaced right patella fracture Postoperative Diagnosis: Procedure: Open reduction internal fixation right patella Anesthesia: Gen. Surgeon: Javier Machuca Disease Education Specialist(s): John Sebastian PA-C The surgical procedure was assisted by my physician portfolio assistant. My P.A. presence was necessary throughout this case for the manipulation and positioning of the surgical extremity. My P.A. was assisting me throughout the duration of this procedure. The skill set of a physician portfolio assistant was medically necessary to complete this procedure. During the surgical case the surgical attendant was working at the back table and the physician portfolio assistant was directly assisting me. Operation and Findings: This patient had an injury resulting in displaced right patella fracture. Informed consent was confirmed preoperatively and informed consent was obtained. Patient was cleared by medical and cardiology for surgery. I had a detailed discussion with the patient regarding the risks and benefits of surgery. Patient was brought to the operating room and placed on the OR table. IV sedation and GETA were administered by anesthesiologist and IV antibiotics were given prior to incision. A timeout procedure was performed. The operative leg was prepped with alcohol followed by Hibiclens and draped in the usual sterile fashion. The procedure began with a 4-inch incision over the anterior knee. Subcutaneous tissue was dissected with Bovie. At this point the fracture site was visualized. Fracture was now cleaned with curettes. At this point attention was turned to reduction. The inferior pole of the patella was reduced to the superior pole of the patella. Fracture keyed into anatomic alignment. Multiplanar fluoroscopy confirmed excellent alignment of fracture. 3 guide pins for the Synthes 4.0 cannulated screws were now placed from inferior to superior. Fluoroscopy was used to confirm appropriate guidepin placement. Screw lengths were measured. Cannulated drill was now placed over the guide pins. Appropriate length screws were now placed, good compression was applied. An 18 gauge wire was now passed through the cannulated screws. A tension band type construct was now created. The wires were tensioned appropriately. Fluoroscopy confirmed well-placed hardware with well-aligned fracture. Additional #5 FiberWire was used to reinforce the repair. The retinaculum was now closed with #1 Vicryl, subcutaneous tissue was closed with 3 -0 Vicryl and skin was closed with mela. Sterile dressings were applied. The patient was transferred to recovery in stable condition. She was placed into a knee immobilizer. Javier Machuca MD Nov 10, 2016 08:47
[2016-11-10] MEDS: ESCITALOPRAM OXALATE 10 MG TAB PO SCH (09:00)
[2016-11-10] MEDS: LISINOPRIL 20 MG TAB PO SCH (09:00)
[2016-11-10] MEDS: SODIUM CHLORIDE 0.9% FLUSH 5 ML FLUSH IVF SCH ×2 (09:00→21:00)
[2016-11-10] MEDS: CALCIUM/VITAMIN D 250 MG/125 U TAB PO SCH ×3 (09:00→17:00)
[2016-11-10] MEDS: HYDROXYCHLOROQUINE SULFATE 200 MG TAB PO SCH ×2 (09:00→21:04)
[2016-11-10] MEDS: DOCUSATE SODIUM 50 MG/SENNA 8.6 MG TAB PO SCH ×2 (09:00→21:00)
[2016-11-10] MEDS: amLODIPine BESYLATE 5 MG TAB PO SCH (09:00)
[2016-11-10] MEDS ORDERED: DO NOT ADM ANY ANTICOAGULANT DRUGS PRN (09:00)
[2016-11-10] MEDS ORDERED: ENOXAPARIN SODIUM 30 MG/0.3 ML SYRINGE SQ SCH (09:00)
[2016-11-10] MEDS ORDERED: *morphine SULFATE 8 MG/ML PERIprocedure ONLY ONE ×3 (09:01→09:12)
--- NOTE | 2016-11-10 09:01 | HHI.FF ---
Face to Face Verification Diagnosis: (1) Patellar fracture Physical Therapy Gait training Right LE Weight Bearing: Toe Touch WB (50 lbs weight bearing), No Quad Sets Right LE Range of Motion: No ROM Additional Instructions knee immobilizer on at all times Nursing Dressing Changes: George wrap, 4x4s, Xeroform I have seen patient Yasmin Buchanan on 11/10/16. My clinical findings support the need for the requested home health care services because: Limited ability to care for self I certify that my clinical findings support that this patient is homebound because: Post-op weakness Mac Sebastian Jr. Nov 10, 2016 09:01
[2016-11-10] MEDS ORDERED: MIDAZOLAM HCL 2 MG/2 ML VIAL ONE (09:09)
[2016-11-10] MEDS ORDERED: *HYDROmorphone PF 1 MG VIAL PERIprocedural Use ONLY ONE (09:22)
[2016-11-10] MEDS: LACTATED RINGER'S 1000 ML INJ 1,000 ML IV SCH (09:30)
--- NOTE | 2016-11-10 10:39 | RADRPT ---
EXAM DATE/TIME: 11/10/2016 08:30 [facility] COMPARISON: FLUOROSCOPY PORTABLE UP TO 1HR, November 10, 2016, 0:00. INDICATIONS : ORIF right patella. MEDICAL HISTORY : None. SURGICAL HISTORY : None. ENCOUNTER: Subsequent ACUITY: 1 week PAIN SCORE: Non-responsive. LOCATION: Right patella. FINDINGS: Intraoperative examination demonstrates ORIF of the patient's patella fracture. The alignment of the patella is excellent post fixation. CONCLUSION: Excellent alignment of the patient's patella fracture. Akin Prescott MD on November 10, 2016 at 10:36 Board Certified Radiologist. This report was verified electronically.
[2016-11-10] MEDS ORDERED: PROPOFOL 200 MG/20 ML AMP IV ONE (12:00)
[2016-11-10] MEDS ORDERED: ONDANSETRON HCL 4 MG/2 ML VIAL IV PUSH ONE (12:00)
[2016-11-10] MEDS ORDERED: PHENYLEPH/NS 1000 MCG/10 ML SYR IV ONE (12:00)
[2016-11-10] MEDS: ACETAMINOPHEN/HYDROcodone 325 MG/7.5 MG TAB PO PRN ×3 (13:59→20:54)
[2016-11-10] MEDS: ceFAZolin 2 GM PREMIX 50 ML IV SCH ×2 (17:01→22:55)
--- NOTE | 2016-11-10 18:26 | EKG ---
Date Performed: 11/09/2016 Time Performed: 12:37:58 PTAGE: 56 years EKG: Sinus rhythm Diffuse nonspecific ST-T wave changes. Can not exclude ischemia. Septal changes are unchanged from p rior tracing. ABNORMAL ECG PREVIOUS TRACING : 11/08/2016 18.40 DOCTOR: Madan Hannah Interpretating Date/Time 11/10/2016 18:25:57
--- NOTE | 2016-11-10 19:58 | HHI.PR ---
Subjective Remarks patient is sp ORIf of the right patellar fracture Patient denies chest pain or short of breath Denies fevers or chills, patient is slightly tachycardic Objective Vitals Vital Signs Date Time Temp Pulse Resp B/P Pulse Ox O2 Delivery O2 Flow Rate FiO2 11/10/16 15:45 95.7 107 17 122/83 98 11/10/16 13:43 95 Nasal Cannula 3.00 11/10/16 11:35 96.0 104 17 122/76 93 11/10/16 09:49 96.4 100 17 121/84 100 11/10/16 09:45 Nasal Cannula 2.00 11/10/16 09:30 101 12 135/79 100 Nasal Cannula 3 11/10/16 09:15 103 12 126/77 97 Nasal Cannula 3 11/10/16 09:00 105 12 142/84 97 Nasal Cannula 3 11/10/16 08:59 98.2 107 12 156/87 95 Nasal Cannula 3 11/10/16 04:50 96.7 106 18 116/84 95 11/10/16 00:35 97.4 102 18 105/71 97 11/09/16 20:50 98.6 105 18 123/92 98 11/09/16 20:00 98 Room Air I/O 11/09/16 11/09/16 11/09/16 11/10/16 11/10/16 11/10/16 07:00 15:00 23:00 07:00 15:00 23:00 Intake Total 0 ml 870 ml 240 ml 1760 ml Output Total 30 ml Balance 0 ml 870 ml 240 ml 1730 ml Intake Oral 0 ml 720 ml 240 ml 960 ml IV Total 150 ml 400 ml Other 400 ml Output Urine Total 0 ml Estimated Blood Loss 30 ml Other 0 ml # Voids 2 3 1 2 2 # Bowel Movements 0 0 0 0 0 Result Diagram: 11/09/16 0559 11/09/16 0559 Imaging Last Impressions Knee X-Ray 11/10/16 0000 Signed Impressions: Service Date/Time: Thursday, November 10, 2016 08:30 - CONCLUSION: Excellent alignment of the patient's patella fracture. Akin Prescott MD Chest X-Ray 11/08/16 1812 Signed Impressions: Service Date/Time: Tuesday, November 08, 2016 18:11 - CONCLUSION: 1. No acute findings. No focal lung consolidation or effusion. Wicho Chambers MD Objective Remarks GENERAL: This is a well-nourished, well-developed patient, in moderate distress due to pain. SKIN: No rashes, ecchymoses or lesions. Cool and dry. HEAD: Atraumatic. Normocephalic. No temporal or scalp tenderness. EYES: Pupils equal round and reactive. Extraocular motions intact. No scleral icterus. No injection or drainage. ENT: Nose without bleeding, purulent drainage or septal hematoma. Throat without erythema, tonsillar hypertrophy or exudate. Uvula midline. Airway patent. NECK: Trachea midline. No JVD or lymphadenopathy. Supple, nontender, no meningeal signs. CARDIOVASCULAR: Regular rate and rhythm without murmurs, gallops, or rubs. RESPIRATORY: Clear to auscultation. Breath sounds equal bilaterally. No wheezes , rales, or rhonchi. GASTROINTESTINAL: Abdomen soft, non-tender, nondistended. No hepato-splenomegaly , or palpable masses. No guarding. MUSCULOSKELETAL: Right knee is in immobilizer. Right knee swollen and tender to palpation. good pedal pulses in right extremity. NEUROLOGICAL: Awake and alert. Cranial nerves II through XII intact. Motor and sensory grossly within normal limits. Five out of 5 muscle strength in all muscle groups. Normal speech. Procedures sp ORIF of right patellar fracture Medications and IVs Current Medications Medications (Trade) Dose Ordered Sig/Manuel Route Start Time Stop Time Status Last Admin (Tylenol) 650 mg Q4H PRN PO 11/08/16 19:00 (Zofran Inj) 4 mg Q6H PRN IVP 11/08/16 19:00 (Sera-Colace) 1 tab BID PO 11/08/16 21:00 11/09/16 20:32 (Milk Of Magnesia Liq) 30 ml Q12H PRN PO 11/08/16 19:00 (Senokot) 17.2 mg Q12H PRN PO 11/08/16 19:00 (Dulcolax Supp) 10 mg DAILY PRN RECTAL 11/08/16 19:00 (Lactulose Liq) 30 ml DAILY PRN PO 11/08/16 19:00 (Morphine Inj) 2 mg Q3H PRN IV PUSH 11/08/16 19:30 (Morphine Inj) 4 mg Q3H PRN IV PUSH 11/08/16 19:30 11/10/16 05:21 (Catapres) 0.1 mg Q6H PRN PO 11/08/16 19:30 (Ventolin Hfa Inh) 1 puff Q4H PRN INH 11/09/16 18:45 (Norvasc) 5 mg DAILY PO 11/10/16 09:00 (Lioresal) 10 mg BID PRN PO 11/09/16 18:30 (Lexapro) 10 mg DAILY PO 11/10/16 09:00 (Plaquenil) 200 mg BID PO 11/09/16 21:00 11/09/16 20:32 (Prinivil) 20 mg DAILY PO 11/10/16 09:00 Tizanidine HCl 4 mg 4 mg HS PO 11/09/16 21:00 11/09/16 20:32 (Lr 1000 ml Inj) 1,000 ml @ 80 mls/hr [id number] IV 11/10/16 09:30 (NS Flush) 2 ml UNSCH PRN IVF 11/10/16 08:45 (NS Flush) 2 ml BID IVF 11/10/16 09:00 Enoxaparin Sodium 30 mg 30 mg Q24H SQ 11/11/16 08:00 (Ancef 2 Gm Premix) 50 ml @ 100 mls/hr Q8H IV 11/10/16 16:00 11/11/16 08:29 11/10/16 17:01 (Havana 7.5-325 Mg) 1 tab Q3H PRN PO 11/10/16 08:45 11/10/16 17:00 (Oscal-D 250-125) 250 mg TID PO 11/10/16 09:00 11/10/16 17:00 (Benadryl) 25 mg Q6H PRN PO 11/10/16 08:45 (Morphine Inj) 4 mg Q3H PRN IV PUSH 11/10/16 08:45 Miscellaneous Information ALL NURSING DEPARTME... UNSCH PRN .XX 11/10/16 09:00 11/11/16 08:59 Urinary Catheter: No Vascular Central Line Catheter: No A/P Problem List: (1) Patellar fracture ICD Code: S82.009A Status: Acute Plan: The patient to the medical/surgical floor Continue pain control w IV morphine Orthopedic surgery has been consulted by ED physician -patient went down to OR today, however did not get surgery because cardiology clearance was not done previously. Keep nothing by mouth at midnight Chest x-ray viewed by me is clear without acute disease EKG reviewed by me shows sinus rhythm and diffuse T-wave inversion. Cardiology has been consulted and cleared the patient for a surgical procedure. (2) Hypertension ICD Code: I10 Status: Chronic Plan: Continue amlodipine and continue to hold HCTZ. BP stable. Continue to monitor vital signs (3) Depression ICD Code: F32.9 Status: Acute Plan: Seems stable. Continue Lexapro. (4) Lupus ICD Code: M32.9 Status: Acute Plan: Seems to be stable. Continue Plaquenil. (5) Diabetes ICD Code: E11.9 Status: Acute Plan: Diet controlled as per patient. We'll place on SSI with insulin NovoLog and monitor Accu-Cheks. Last hemoglobin A1c on 10/12/14 was 5.1. We'll check hemoglobin A1c. Advised patient to discuss with his primary above been started on aspirin and statin given her diabetes. Consider starting aspirin and statin given diabetes. Assessment and Plan GI prophylaxis: Patient on bowel regimen to prevent constipation. DVT prophylaxis: As per orthopedic surgery. Resume Lovenox SQ as per orthopedic surgery. Discharge Planning DC pending clearance from orthopedic surgery. Patient will need home health physical therapy. Problem Qualifiers (1) Patellar fracture: Qualified Code: S82.041A - Closed displaced comminuted fracture of right patella, initial encounter (2) Hypertension: Qualified Code: I10 - Essential hypertension (3) Depression: Qualified Code: F32.9 - Depression, unspecified depression type (4) Diabetes: Qualified Code: E11.9 - Type 2 diabetes mellitus without complication, without long-term current use of insulin Nicola Hyman MD Nov 10, 2016 19:58
[2016-11-10] MEDS: BACLOFEN 10 MG TAB PO PRN (20:54)
[2016-11-11] MEDS: ACETAMINOPHEN/HYDROcodone 325 MG/7.5 MG TAB PO PRN ×6 (00:34→16:59)
[2016-11-11 04:00] VITALS: BP 108/78; PULSE 98; RESP 17; TEMP 97; O2SAT 95
[2016-11-11 06:18] LABS: HEMATOCRIT 33.3 % (35.0-46.0); MEAN CELL VOLUME 92.4 FL (80.0-100.0); MEAN CORPUSCULAR HEMOGLOBIN 31.1 PG (27.0-34.0); MEAN CORPUSCULAR HGB CONC 33.6 % (32.0-36.0); PLATELET COUNT 220 TH/MM3 (150-450); RED CELL DISTRIBUTION WIDTH 13.7 % (11.6-17.2); REVIEW FLAG FINAL; WHITE BLOOD COUNT 13.3 TH/MM3 (4.0-11.0)
[2016-11-11 06:39] LABS: ANION GAP 8 MEQ/L (5-15); BICARBONATE 28.7 MEQ/L (21.0-32.0); BLOOD UREA NITROGEN 8 MG/DL (7-18); CHLORIDE 99 MEQ/L (98-107); GLOMERULAR FILTRATION RATE 128 ML/MIN (>89); POTASSIUM 4.1 MEQ/L (3.5-5.1); SODIUM (NA) 136 MEQ/L (136-145)
--- NOTE | 2016-11-11 07:12 | PD.ORT.PN ---
Subjective Subjective Remarks Pain controlled no new complaints Objective Vitals Vital Signs Date Time Temp Pulse Resp B/P Pulse Ox O2 Delivery O2 Flow Rate FiO2 11/11/16 04:00 97.0 98 17 108/78 95 11/10/16 23:56 96.8 97 16 113/67 98 11/10/16 20:34 98 Nasal Cannula 3.00 11/10/16 19:00 96.0 108 15 121/94 98 11/10/16 15:45 95.7 107 17 122/83 98 11/10/16 13:43 95 Nasal Cannula 3.00 11/10/16 11:35 96.0 104 17 122/76 93 11/10/16 09:49 96.4 100 17 121/84 100 11/10/16 09:45 Nasal Cannula 2.00 11/10/16 09:30 101 12 135/79 100 Nasal Cannula 3 11/10/16 09:15 103 12 126/77 97 Nasal Cannula 3 11/10/16 09:00 105 12 142/84 97 Nasal Cannula 3 11/10/16 08:59 98.2 107 12 156/87 95 Nasal Cannula 3 I/O 11/10/16 11/10/16 11/10/16 11/11/16 11/11/16 11/11/16 07:00 15:00 23:00 07:00 15:00 23:00 Intake Total 1760 ml 480 ml 240 ml Output Total 30 ml Balance 1730 ml 480 ml 240 ml Intake Oral 960 ml 480 ml 240 ml IV Total 400 ml Other 400 ml Output Urine Total 0 ml Estimated Blood Loss 30 ml Other 0 ml # Voids 2 2 2 3 # Bowel Movements 0 0 0 0 Result Diagram: 11/11/16 0430 11/11/16 0430 Imaging Last 24 hours Impressions Chest X-Ray 11/08/16 1812 Signed Impressions: Service Date/Time: Tuesday, November 08, 2016 18:11 - CONCLUSION: 1. No acute findings. No focal lung consolidation or effusion. Wicho Chambers MD Knee X-Ray 11/08/16 1632 Signed Impressions: Service Date/Time: Tuesday, November 08, 2016 16:43 - CONCLUSION: 1. Comminuted , displaced patellar fracture. Wicho Chambers MD Objective Remarks Bilateral upper extremity is: Full range of motion, NVI Left lower extremity: Full range of motion, NVI Right lower extremity: No pain with hip range of motion or ankle motion. Knee immobilizer in place with mild swelling of knee. Clean dry dressings intact. Intact sensation distally with good capillary refills. Strong dorsal flexion plantar flexion of foot Assessment & Plan Assessment and Plan Right patella fracture ORIF POD 1 Maintain knee immobilizer Dressing changes beginning POD 2 PT with 50 pounds weightbearing right lower extremity with knee immobilizer, no active leglifts or quad sets Evaluation for possible discharge to home Walker and wheelchair with elevated leg rest Follow-up Dr. Machuca or [place] in 2 weeks Mac Sebastian Jr. Nov 11, 2016 07:12
[2016-11-11] MEDS ORDERED: WHEEMIS3 (07:14)
[2016-11-11 07:18] VITALS: BP 133/76; PULSE 98; RESP 17; TEMP 97.3; O2SAT 94
[2016-11-11] MEDS ORDERED: ENOXAPARIN SODIUM 30 MG/0.3 ML SYRINGE SQ SCH (08:00)
[2016-11-11] MEDS: amLODIPine BESYLATE 5 MG TAB PO SCH (08:20)
[2016-11-11] MEDS: ceFAZolin 2 GM PREMIX 50 ML IV SCH (08:20)
[2016-11-11] MEDS: ESCITALOPRAM OXALATE 10 MG TAB PO SCH (08:20)
[2016-11-11] MEDS: CALCIUM/VITAMIN D 250 MG/125 U TAB PO SCH ×3 (08:21→16:59)
[2016-11-11] MEDS: HYDROXYCHLOROQUINE SULFATE 200 MG TAB PO SCH (08:21)
[2016-11-11] MEDS: LISINOPRIL 20 MG TAB PO SCH (08:21)
[2016-11-11] MEDS: DOCUSATE SODIUM 50 MG/SENNA 8.6 MG TAB PO SCH (08:21)
[2016-11-11] MEDS: SODIUM CHLORIDE 0.9% FLUSH 5 ML FLUSH IVF SCH (08:21)
[2016-11-11] MEDS: BACLOFEN 10 MG TAB PO PRN (08:26)
[2016-11-11 10:04] VITALS: O2SAT 93
[2016-11-11] MEDS: LACTATED RINGER'S 1000 ML INJ 1,000 ML IV SCH (10:30)
[2016-11-11 10:42] LABS: HEMOGLOBIN A1b 0.8 %; HEMOGLOBIN Ao 86.1 %; HEMOGLOBIN F 0.8 %; HEMOGLOBIN P3 3.4 %
[2016-11-11 11:45] VITALS: BP 108/68; PULSE 96; RESP 17; TEMP 97; O2SAT 100
[2016-11-11 15:55] VITALS: BP 116/76; PULSE 100; RESP 17; TEMP 96.8; O2SAT 94
[2016-11-11] MEDS ORDERED: BEDSIDE COMMODE1 MI1 (15:56)
--- NOTE | 2016-11-11 15:58 | HHI.PR ---
Objective Vitals Vital Signs Date Time Temp Pulse Resp B/P Pulse Ox O2 Delivery O2 Flow Rate FiO2 11/11/16 11:45 97.0 96 17 108/68 100 11/11/16 10:04 93 21 11/11/16 08:15 Room Air 11/11/16 07:18 97.3 98 17 133/76 94 11/11/16 04:00 97.0 98 17 108/78 95 11/10/16 23:56 96.8 97 16 113/67 98 11/10/16 20:34 98 Nasal Cannula 3.00 11/10/16 19:00 96.0 108 15 121/94 98 I/O 11/10/16 11/10/16 11/10/16 11/11/16 11/11/16 11/11/16 07:00 15:00 23:00 07:00 15:00 23:00 Intake Total 1760 ml 480 ml 240 ml Output Total 30 ml Balance 1730 ml 480 ml 240 ml Intake Oral 960 ml 480 ml 240 ml IV Total 400 ml Other 400 ml Output Urine Total 0 ml Estimated Blood Loss 30 ml Other 0 ml # Voids 2 2 2 3 # Bowel Movements 0 0 0 0 Result Diagram: 11/11/16 0430 11/11/16 0430 A/P Problem List: (1) Patellar fracture ICD Code: S82.009A Status: Acute (2) Hypertension ICD Code: I10 Status: Chronic (3) Depression ICD Code: F32.9 Status: Acute (4) Lupus ICD Code: M32.9 Status: Acute (5) Diabetes ICD Code: E11.9 Status: Acute Assessment and Plan GI prophylaxis: Patient on bowel regimen to prevent constipation. DVT prophylaxis: As per orthopedic surgery. Resume Lovenox SQ as per orthopedic surgery. Discharge Planning DC pending clearance from orthopedic surgery. Patient will need home health physical therapy. Problem Qualifiers (1) Patellar fracture: Qualified Code: S82.041A - Closed displaced comminuted fracture of right patella, initial encounter (2) Hypertension: Qualified Code: I10 - Essential hypertension (3) Depression: Qualified Code: F32.9 - Depression, unspecified depression type (4) Diabetes: Qualified Code: E11.9 - Type 2 diabetes mellitus without complication, without long-term current use of insulin Nicola Hyman MD Nov 11, 2016 15:58 ICD Code: E11.9 Status: Acute Assessment and Plan GI prophylaxis: Patient on bowel regimen to prevent constipation. DVT prophylaxis: As per orthopedic surgery. Resume Lovenox SQ as per orthopedic surgery. Discharge Planning DC pending clearance from orthopedic surgery. Patient will need home health physical therapy. Problem Qualifiers (1) Patellar fracture: Qualified Code: S82.041A - Closed displaced comminuted fracture of right patella, initial encounter (2) Hypertension: Qualified Code: I10 - Essential hypertension (3) Depression: Qualified Code: F32.9 - Depression, unspecified depression type (4) Diabetes: Qualified Code: E11.9 - Type 2 diabetes mellitus without complication, without long-term current use of insulin Nicola Hyman MD Nov 11, 2016 15:58
--- NOTE | 2016-11-11 16:07 | HHI.FF ---
Face to Face Verification Diagnosis: (1) HTN (hypertension) (2) Depression (3) Patellar fracture (4) Lupus (5) Diabetes (6) Fracture of right patella Physical Therapy Order: Improve ambulation, Strength and gait training Home Health Nursing Order: Medical education Wound care and dressing changes Nursing assessment with vital signs I have seen patient Yasmin Buchanan on 11/11/16. My clinical findings support the need for the requested home health care services because: Need for psychosocial assistance High risk of falls I certify that my clinical findings support that this patient is homebound because: Post-op weakness Unsteady gait/balance Unsafe to leave home unassisted Unable to use public transportation Nicola Hyman MD Nov 11, 2016 16:06
--- NOTE | 2016-11-11 16:07 | HHI.DS ---
Discharge Summary Admission Date Nov 08, 2016 at 18:41 Discharge Date: Nov 11, 2016 Admitting Diagnosis right patellar fracture (1) Patellar fracture ICD Code: S82.009A Diagnosis: Principal (2) Hypertension ICD Code: I10 Diagnosis: Principal (3) Depression ICD Code: F32.9 Diagnosis: Secondary (4) Lupus ICD Code: M32.9 Diagnosis: Secondary (5) Diabetes ICD Code: E11.9 Diagnosis: Secondary Procedures sp ORIF of right patellar fracture Brief History - From Admission This is a 56-year-old female with past medical history significant for hypertension, lupus, diet-controlled diabetes, depression presented to [facility] after she fell after healing occur over her knees. She felt immediate 10/10 pain was nonradiating in the right knee and states was able to observe the right knee going inwards. The patient states that movement aggravated the pain and this was unrelieved after she was given IV morphine emergency department. The patient denies hitting her head or losing consciousness, denies dizziness, chest pain, short of breath, dysuria, abdominal pain, nausea, vomiting, diarrhea. She states that she was going to eat when she fell. CBC/BMP: 11/11/16 0430 11/11/16 0430 Significant Findings Laboratory Tests Test 11/08/16 11/09/16 11/09/16 11/11/16 18:15 05:59 10:40 04:30 White Blood Count 11.7 TH/MM3 13.3 TH/MM3 (4.0-11.0) (4.0-11.0) Neutrophils (%) (Auto) 76.1 % (16.0-70.0) Neutrophils # (Auto) 8.9 TH/MM3 (1.8-7.7) Prothrombin Time 12.7 SEC (9.8-11.6) Estimat Glomerular Filtration 85 ML/MIN (>89) 86 ML/MIN (>89) Rate Random Glucose 111 MG/DL 108 MG/DL (74-106) (74-106) Monocytes (%) (Auto) 8.8 % (0.0-8.0) Monocytes # (Auto) 1.0 TH/MM3 (0-0.9) Troponin I LESS THAN 0.02 NG/ML (0.02-0.05) Red Blood Count 3.60 MIL/MM3 (4.00-5.30) Hemoglobin 11.2 GM/DL (11.6-15.3) Hematocrit 33.3 % (35.0-46.0) Imaging Last Impressions Knee X-Ray 11/10/16 0000 Signed Impressions: Service Date/Time: Thursday, November 10, 2016 08:30 - CONCLUSION: Excellent alignment of the patient's patella fracture. Akin Prescott MD Chest X-Ray 11/08/16 1812 Signed Impressions: Service Date/Time: Tuesday, November 08, 2016 18:11 - CONCLUSION: 1. No acute findings. No focal lung consolidation or effusion. Wicho Chambers MD PE at Discharge GENERAL: This is a well-nourished, well-developed patient, in moderate distress due to pain. SKIN: No rashes, ecchymoses or lesions. Cool and dry. HEAD: Atraumatic. Normocephalic. No temporal or scalp tenderness. EYES: Pupils equal round and reactive. Extraocular motions intact. No scleral icterus. No injection or drainage. ENT: Nose without bleeding, purulent drainage or septal hematoma. Throat without erythema, tonsillar hypertrophy or exudate. Uvula midline. Airway patent. NECK: Trachea midline. No JVD or lymphadenopathy. Supple, nontender, no meningeal signs. CARDIOVASCULAR: Regular rate and rhythm without murmurs, gallops, or rubs. RESPIRATORY: Clear to auscultation. Breath sounds equal bilaterally. No wheezes , rales, or rhonchi. GASTROINTESTINAL: Abdomen soft, non-tender, nondistended. No hepato-splenomegaly , or palpable masses. No guarding. MUSCULOSKELETAL: Right knee is in immobilizer. Right knee swollen and tender to palpation. good pedal pulses in right extremity. NEUROLOGICAL: Awake and alert. Cranial nerves II through XII intact. Motor and sensory grossly within normal limits. Five out of 5 muscle strength in all muscle groups. Normal speech. Pt update on day of discharge Pain controlled. Denies cp/sob, patient wants to go home. Hospital Course (1) Patellar fracture Patient was admitted to the medical/surgical floor. Continue pain control w IV morphine Orthopedic surgery has been consulted by ED physician -patient went down to OR , however did not get surgery because cardiology clearance was not done previously. Chest x-ray viewed by me is clear without acute disease EKG reviewed by me shows sinus rhythm and diffuse T-wave inversion. Cardiology has been consulted and cleared the patient for a surgical procedure. Patient underwent an open reduction internal fixation right patella (2) Hypertension Continue amlodipine and continue to hold HCTZ. BP stable. Vital signs monitored through hospital stay (3) Depression Seems stable. Continue Lexapro. (4) Lupus Continued home Plaquenil. (5) Diabetes Diet controlled as per patient. We'll place on SSI with insulin NovoLog and monitor Accu-Cheks. Last hemoglobin A1c on 10/12/14 was 5.1. We'll check hemoglobin A1c. Advised patient to discuss with his primary above been started on aspirin and statin given her diabetes. Consider starting aspirin and statin given diabetes. GI prophylaxis: Patient placed on bowel regimen to prevent constipation. DVT prophylaxis: As per orthopedic surgery. Resume Lovenox SQ as per orthopedic surgery. Pt Condition on Discharge: Stable Discharge Disposition: Disch w/ Home Health Serv Discharge Time: > 30 minutes Discharge Instructions DIET: Follow Instructions for: Heart Healthy Diet Activities you can perform: See Additionl Instruction Other Activity Instructions: as per PT indications Maintain knee immobilizer PT with 50 pounds weightbearing right lower extremity with knee immobilizer, no active leglifts or quad sets Follow up Referrals: Orthopedics - 2 Weeks @ [facility] with Javier Cedillo MD SNF[facility]/ with [facility] Home New Medications: Bedside Commode (Bedside Commode) 1 Mis Mis 1 EA .ROUTE DIRECTED #1 EA Calcium Carbonate-Vitamin D (Calcium 600+D 200) 600-200 Mg-Unit Tab 1 TAB PO BID Nutritional Supplement #60 Ref 0 TAB Ergocalciferol (Ergocalciferol) 50,000 Unit Cap 89152 UNITS PO Q7D Nutritional Supplement #7 Ref 0 CAP Hydrocodone-Acetaminophen ([place]) 7.5-325 mg Tab 1 TAB PO Q4H PRN PAIN #60 Ref 0 TAB Rivaroxaban (Xarelto) 10 Mg Tab 10 MG PO DAILY Blood Clot Prevention #21 Ref 0 TAB Walker with Front Wheels (Walker with Front Wheels) 1 Mis Mis 1 EA .ROUTE DIRECTED #1 Ref 0 EA Wheelchair Elevated Leg (Wheelchair Elevated Leg) 1 Mis Mis 1 EA .ROUTE DIRECTED #1 Ref 0 EA Continued Medications: Albuterol 18 GM Inh (Ventolin Hfa 18 GM Inh) 90 Mcg/Act Aer 1 PUFF INH Q4H PRN SHORTNESS OF BREATH #1 Ref 0 INHALER Amlodipine (Amlodipine) 5 Mg Tab 5 MG PO DAILY Blood Pressure Management #30 Ref 0 TAB Baclofen (Baclofen) 10 Mg Tab 10 MG PO BID PRN MUSCLE SPASM Ref 0 TAB Escitalopram (Lexapro) 10 Mg Tab 10 MG PO DAILY #30 Ref 0 TAB Hydrochlorothiazide (Hydrochlorothiazide) 25 Mg Tab 25 MG PO DAILY #30 Ref 0 TAB Lisinopril (Lisinopril) 20 Mg Tab 20 MG PO DAILY #30 Ref 0 TAB Tizanidine (Tizanidine) 4 Mg Cap 4 MG PO HS Muscle Spasm Ref 0 CAP Discontinued Medications: Hydrocodone-Acetaminophen (Lortab) 10-325 Mg Tab 1 TAB PO Q6H PRN PAIN Ref 0 TAB Hydroxychloroquine (Plaquenil) 200 Mg Tab 200 MG PO BID Take with food #60 Ref 0 TAB Nicola Hyman MD Nov 11, 2016 16:07
[2016-11-11 17:41] VITALS: O2SAT 94
== END 2016-11-11 17:47 | disposition home health service (06) | DRG 517 ==
LOC: NEPE 16:21 → NEDA 18:41 → N06B 19:55
PROVIDERS: ADMIT Hospitalist; ATTEND Hospitalist
PROC: 0QSD04Z Reposition Right Patella with Internal Fixation Device, Open Approach (ICD-10-PCS; principal; 2016-11-10 07:30)
DX: S82.041A Displaced comminuted fracture of right patella, initial encounter for closed fracture (principal); M32.9 Systemic lupus erythematosus, unspecified; I10 Essential (primary) hypertension; E11.9 Type 2 diabetes mellitus without complications; E66.9 Obesity, unspecified; R94.31 Abnormal electrocardiogram [ECG] [EKG]; F17.210 Nicotine dependence, cigarettes, uncomplicated; F32.9 Major depressive disorder, single episode, unspecified; W10.1XXA Fall (on)(from) sidewalk curb, initial encounter; Y92.480 Sidewalk as the place of occurrence of the external cause; Y92.511 Restaurant or cafe as the place of occurrence of the external cause; Z68.38 Body mass index [BMI] 38.0-38.9, adult; Z79.01 Long term (current) use of anticoagulants
CPT/HCPCS: 71010; 73560; 73564; 76000; 80048; 80053; 82550; 83036; 84484; 85025; 85027; 85610; 85730; 93005; 94150; 96374; C1713; J0690; J1170; J1580; J1650; J2250; J2270; J2370; J2405; J3010; J3370; J7050; L1830